=== PATIENT | female | born 1950 | race Caucasian/White ===

== ENCOUNTER 2017-10-21 09:09 | Day surgery (SDC) | payer MEDICAID, OTHER ==
[2017-10-21] MEDS ORDERED: FAMOTIDINE 20 MG TAB PO ONE (09:12)
[2017-10-21] MEDS ORDERED: DIAZEPAM 5 MG TAB PO ONE (09:12)
[2017-10-21] MEDS ORDERED: NS 1,000 ML IV ONE (09:12)
[2017-10-21] MEDS ORDERED: diphenhydrAMINE 25 MG CAP PO ONE ×2 (09:12→09:33)
[2017-10-21] MEDS ORDERED: ASPIRIN EC 325 MG TAB PO ONE ×2 (09:12→09:34)
--- NOTE | 2017-10-21 09:27 | CPEKG ---
Heart Rate: 67 RR Interval: 896 P-R Interval: 192 QRSD Interval: 92 QT Interval: 424 QTC Interval: 448 P [place]: 20 QRS [place]: -36 T Wave [place]: 48 EKG Severity - ABNORMAL ECG - EKG Impression: SINUS RHYTHM EKG Impression: LEFT AXIS DEVIATION EKG Impression: PROBABLE ANTEROSEPTAL INFARCT, OLD Electronically Signed By: Torsten Osborn 21-Oct-2017 13:25:10
[2017-10-21] MEDS ORDERED: FAMOTIDINE 20 MG TAB ONE (09:34)
[2017-10-21] MEDS ORDERED: DIAZEPAM 5 MG TAB ONE (09:35)
[2017-10-21 09:43] LABS: PLATELET COUNT 254 10^3/uL (150-400)
[2017-10-21 09:50] LABS: INR 0.94 (0.83-1.16); PROTIME(PATIENT) 12.8 SEC (12.0-15.0)
[2017-10-21] MEDS ORDERED: IOPAMIDOL (ISOVUE-370) 150 ML BTL IV ONE (10:01)
[2017-10-21] MEDS ORDERED: MIDAZOLAM 2 MG/2 ML VIAL ONE ×2 (10:01→11:03)
[2017-10-21] MEDS ORDERED: LIDOCAINE 1% 300 MG/30 ML SDV ONE (10:01)
[2017-10-21] MEDS ORDERED: fentaNYL 100 MCG/2 ML INJ ONE ×2 (10:01→11:03)
--- NOTE | 2017-10-21 10:16 | PDHPUP ---
History & Physical Update H&P update statement: This history and physical update is based on an assessment of the patient which was completed after admission or registration (within 24 hours), but prior to the surgery/procedure. H&P update: H&P reviewed & patient examined, no change in patient's condition since H&P completed
--- NOTE | 2017-10-21 10:17 | PDPROPOC ---
Sedation Plan of Care Sedation Plan of Care: vital signs stable, mental status noted, patient educated of risks, benefits, alternatives, patient can tolerate sedation ASA Classification: ASA 2 Planned drugs: fentanyl, midazolam Mallampati Score: Class 2 Mallampati Reference Image: Patient passed 3-3-2 rule?: Yes
--- NOTE | 2017-10-21 11:09 | PDDXCAT ---
Diagnostic Cath Note - . Date: 10/21/17 Faculty Dean: Dong High-risk criteria on non-invasive testing: stress-induced moderate-size multiple perfusion defects - Procedure Access: right groin Procedure: left heart catheterization, coronary angiography, left ventriculogram - Materials Left Heart Cath size: 6F Left Heart Cath materials: standard multipack (JL4, JR4, pigtail) - Findings-Left Heart Catheterization LM: short vessel with bifurcation into the LAD and LCX vessels. No luminal irregularities were noted. LAD: Medium diameter vessel with early D1 (equal in magnitude to the take off from the LAD). In the mid portion of the LAD, where the three stents begin, there is critical in stent stenosis noted. Large left to left collaterals ( from OM1 and D1) supply the LAD. LCX: Large diameter vessel with a large OM1. The mid and distal portion of the LCX is small. No luminal irregularities were noted. As stated above, there is a heavy collateralization from the distal portion of the OM1 into the distal LAD with back fill. RCA: Small, diminuative vessel without appreciable luminal irregularities noted. EDP: 15 mm Hg LVEF: 60% Wall motion: normal wall motion Complications: none Estimated blood loss: <50ml Closure method: Angioseal Assessment: Patient is a 67 y/o female with known history of CAD s/p three stents to the mid portion of the LAD in the past, with complaints of dyspnea. Stress testing with an area of ischaemia in the territory of the previous stents. Angiography today with moderate to severe in stent stenosis to the entire stented LAD territory. Significant collateralization from both the OM1 and the D1 are noted. Normal LVEF. Normal wall motion. Plan: There is risk for reintervention to the LAD territory (risk for new events and risk for occlusion of the natural collaterals that the patient has been able to establish). Would trial more aggressive medical therapy (low dose beta blockers and ACEi therapy). Consider cardiac rehab. Would arrange for patient to be seen by Dr. Isaías Bloom for follow up (he was able to review the films in the hospital today). I feel that more aggressive medications and rehab (cardiac ) is a more safe option given the degree of collaterals noted with preserved LVEF/wall motion. Intervention: none
[2017-10-21] MEDS ORDERED: ONDANSETRON 4 MG/2 ML VIAL IVP PRN (11:56)
[2017-10-21] MEDS ORDERED: NITROGLYCERIN 0.4 MG BTL SL PRN (11:56)
[2017-10-21] MEDS ORDERED: ATROPINE SULFATE 1 MG/10 ML SYR IVP PRN (11:56)
[2017-10-21] MEDS ORDERED: OXYCODONE/APAP 5/325 TAB PO PRN (11:56)
[2017-10-21] MEDS ORDERED: HYDROCODONE/APAP 5/325 TAB PO PRN (11:56)
== END 2017-10-21 14:17 | disposition home or self-care (01) ==
LOC: FCATH 09:09
PROVIDERS: ATTEND Internal Medicine Cardiovascular Disease
PROC: B2151ZZ Fluoroscopy of Left Heart using Low Osmolar Contrast (ICD-10-PCS; principal; 2017-10-21)
PROC: 4A023N7 Measurement of Cardiac Sampling and Pressure, Left Heart, Percutaneous Approach (ICD-10-PCS; principal; 2017-10-21)
PROC: B2111ZZ Fluoroscopy of Multiple Coronary Arteries using Low Osmolar Contrast (ICD-10-PCS; principal; 2017-10-21)
DX: T82.855A Stenosis of coronary artery stent, initial encounter (principal); I25.10 Atherosclerotic heart disease of native coronary artery without angina pectoris; E78.5 Hyperlipidemia, unspecified; J45.909 Unspecified asthma, uncomplicated; K21.9 Gastro-esophageal reflux disease without esophagitis; F31.9 Bipolar disorder, unspecified; Z95.5 Presence of coronary angioplasty implant and graft
CPT/HCPCS: C1760; J1644; J2250; J3010; Q9967